=== PATIENT | female | born 1955 | race Caucasian/White ===

== ENCOUNTER 2024-04-26 06:08 | Day surgery (SDC) | payer OTHER, MEDICAID ==
[~2024-04-26] VITALS: Ht 152.4 cm; Wt 97.7 kg
[~2024-04-26 06:08] MED LIST: KETOROLAC TROMETHAMINE 0.5% 5 ML OPHTHALMIC SOLUTION ONE; MOXIFLOXACIN HCL 0.5% 3 ML OPHTHALMIC SOLUTION ONE; PHENYLEPHRINE HCL 2.5% 2 ML OPHTHALMIC SOLUTION ONE; RINGERS SOLUTION,LACTATED 500 ML IV ONE; TROPICAMIDE 1% 2 ML OPHTHALMIC SOLUTION ONE
[2024-04-26] MEDS ORDERED: MOXIFLOXACIN HCL 0.5% 3 ML OPHTHALMIC SOLUTION ONE (06:26)
[2024-04-26] MEDS: RINGERS SOLUTION,LACTATED 500 ML IV ONE (07:33)
[2024-04-26] MEDS: TROPICAMIDE 1% 2 ML OPHTHALMIC SOLUTION OS SCH (07:34)
[2024-04-26] MEDS: KETOROLAC TROMETHAMINE 0.5% 5 ML OPHTHALMIC SOLUTION OS SCH (07:34)
[2024-04-26] MEDS: MOXIFLOXACIN HCL 0.5% 3 ML OPHTHALMIC SOLUTION OS SCH (07:35)
[2024-04-26] MEDS: PHENYLEPHRINE HCL 2.5% 2 ML OPHTHALMIC SOLUTION OS SCH (07:35)
[2024-04-26] MEDS: EPINEPHrine 1:1,000 [1 MG/ML] VIAL ONE (09:20)
[2024-04-26] MEDS: TETRACAINE HCL/PF 0.5% 4 ML OPHTHALMIC SOLUTION ONE (09:20)
[2024-04-26] MEDS: LIDOCAINE/PF 1% 2 ML VIAL ONE (09:20)
[2024-04-26] MEDS: POVIDONE-IODINE 5% 30 ML OPHTHALMIC SOLUTION ONE (09:20)
[2024-04-26] MEDS: BALANCED SALT 15 ML OPHTHALMIC IRRIG.SOLN ONE (09:20)
[2024-04-26] MEDS ORDERED: MIDAZOLAM HCL 2 MG/2 ML VIAL IVP ONE (12:00)
[2024-04-26] MEDS ORDERED: FentaNYL CITRATE PF 100 MCG/2 ML VIAL IVP ONE (12:00)
== END 2024-04-26 10:55 | disposition home or self-care (01) ==
LOC: SURGERY 06:08
PROVIDERS: ATTEND Ophthalmology
DX: H25.12 Age-related nuclear cataract, left eye (principal); H21.81 Floppy iris syndrome; Z79.899 Other long term (current) drug therapy; Z90.710 Acquired absence of both cervix and uterus; Z98.890 Other specified postprocedural states; Z90.11 Acquired absence of right breast and nipple; Z90.49 Acquired absence of other specified parts of digestive tract; Z96.641 Presence of right artificial hip joint
CPT/HCPCS: 66982; 93005; J0171; J3010; J3490; J2250; J7120; V2632